=== PATIENT | male | born 1960 | race Caucasian/White ===

== ENCOUNTER 2018-05-18 08:14 | Observation (INO) ==
--- NOTE | 2018-05-18 08:58 | ED ---
HPI General Chief complaint: Chest Pain Stated complaint: Chest pain Time Seen by Provider: 05/18/18 08:28 Source: patient, family and RN notes reviewed Mode of arrival: ambulatory History of Present Illness HPI narrative: 58yM presenting with chest pain. The patient states that for the past several weeks he's been having intermittent substernal chest "pressure/ pain like a pinecone is in there" which radiates to his left shoulder, lasts for minutes and resolves with rest, associated with fatigue and dyspnea. Denies diaphoresis, lightheadedness, palpitations, or nausea. [facility] ago and was told to come to the ED for chest pain evaluation but was hesitant to come until today, when the pain got worse. Family history significant for brother with IN/ stents at age 52. Related Data Home Medications Medication Instructions Recorded Confirmed aripiprazole [Abilify] 15 mg PO DAILY 05/18/18 05/18/18 aspirin [Aspir-81] 81 mg PO DAILY 05/18/18 05/18/18 duloxetine [Cymbalta] 30 mg PO DAILY 05/18/18 05/18/18 fentanyl 1 patch TRANSDERMAL Q72H 05/18/18 05/18/18 fluticasone [Flonase Allergy 2 spray INTRANASAL DAILY 05/18/18 05/18/18 Relief] lisdexamfetamine [Vyvanse] 70 mg PO DAILY 05/18/18 05/18/18 lisinopril 5 mg PO DAILY 05/18/18 05/18/18 oxycodone-acetaminophen [Percocet] 1 tab PO DAILY PRN 05/18/18 05/18/18 Allergies Allergy/AdvReac Type Severity Reaction Status Date / Time gabapentin [From Neurontin] AdvReac Mild Headache Verified 05/18/18 08:20 morphine AdvReac Mild Headache Verified 05/18/18 08:20 Review of Systems ROS: all other systems reviewed are negative PMFSH History History Provided By: Patient Medical History Medical History ADHD (Acute) Bipolar 1 disorder (Acute) Depression (Acute) HTN (hypertension) (Acute) High cholesterol (Acute) Skin cancer (Acute) Surgical History Surgical History History of arthroscopic knee surgery (Acute) Previous back surgery (Acute) Social History Social History Substance History: No History of Abuse Second Hand Smoke Exposure: Yes Smoking Status: Never smoker Tobacco Type: Cigarettes How Often Do You Have a Drink Containing Alcohol: Never Recent Travel [facility] within the Last 8 Weeks: No Recent Out of Country Travel within the Last 8 Weeks: No Exam Const Other: Appears uncomfortable [facility] Head: normocephalic and atraumatic Face and sinus: normal facial exam Eyes General: appearance normal, both eyes and all related structures Pupils: PERRL Chest Chest: normal inspection of the chest Resp Effort & Inspection: normal respiratory effort Auscultation: no rhonchi and no wheezes Cardio Rate: regular rate Rhythm: regular rhythm GI Inspection: non-distended Palpation: soft and nontender Skin General: no rashes or lesions noted Other: Non-diaphoretic Neuro General: alert, awake, oriented x3 and no focal motor deficits Extrem Other: No lower extremity edema Psych Affect: normal affect Course Initial Documented Vital Signs Temperature 99.2 F 05/18/18 08:16 Pulse Rate 84 05/18/18 08:16 Respiratory Rate 22 05/18/18 08:16 Blood Pressure 127/71 05/18/18 08:16 Pulse Oximetry 97 05/18/18 08:16 Last Documented Vital Signs Temperature 99.2 F 05/18/18 08:16 Pulse Rate 76 05/18/18 08:47 Respiratory Rate 18 05/18/18 08:47 Blood Pressure 132/82 05/18/18 08:47 Pulse Oximetry 97 05/18/18 08:47 Clinical Decision Support HEART Score Questions History: Highly suspicious EKG: Non-specific repolarization disturbance Age: 45-64 years Risk Factors: 1-2 Risk Factors Initial Troponin: Normal Limit Heart Score HEART Score: 5 Medical Decision Making [facility] Narrative Medical decision making narrative: Assessment: 58yM presenting with chest pain Plan: EKG and monitor Labs CXR Patient already took 324 mg aspirin prior to arrival Addendum: Patient's initial troponin negative, CXR negative, labs otherwise unremarkable. He has a HEART score of 5, story concerning for unstable angina, family history, and multiple risk factors. He will need further evaluation/ observation in the [facility]. The patient understands and agrees with plan. Medical Screen Exam Complete: Yes Emergency Medical Condition: Yes Differential Diagnosis Differential Diagnosis: Differential diagnosis includes, but is not limited to: ACS, arrhythmia, CHF, pericarditis, pneumonia, pleural effusion Medical Records Medical records reviewed: Yes I reviewed the patient's medical records. Lab Data Lab results reviewed: Yes I reviewed the patient's lab results. Result diagrams: 05/18/18 08:50 05/18/18 08:50 Lab Results 05/18/18 05/18/18 05/18/18 Range/Units 08:50 08:50 08:50 WBC 5.2 (4.0-11.0) th/mm3 RBC 4.07 L (4.50-5.90) mil/mm3 Hgb 13.0 (13.0-17.0) gm/dL Hct 38.0 L (39.0-51.0) % MCV 93.4 (80.0-100.0) fL MCH 32.0 (27.0-34.0) pg MCHC 34.3 (32.0-36.0) % RDW 13.2 (11.6-17.2) % Plt Count 291 (150-450) th/mm3 MPV 8.1 (7.0-11.0) fL Neut % (Auto) 50.7 (16.0-70.0) % Lymph % (Auto) 33.6 (9.0-44.0) % [place] % (Auto) 8.8 H (0.0-8.0) % Eos % (Auto) 4.9 H (0.0-4.0) % Baso % (Auto) 2.0 (0.0-2.0) % Neut # (Auto) 2.6 (1.8-7.7) th/mm3 Lymph # (Auto) 1.7 (1.0-4.8) th/mm3 [place] # (Auto) 0.5 (0.0-0.9) th/mm3 Eos # (Auto) 0.3 (0.0-0.4) th/mm3 Baso # (Auto) 0.1 (0.0-0.2) th/mm3 WBC Differential . Differential Comment Auto diff final PT 10.3 (9.8-11.6) sec INR 1.0 Ratio APTT (24.3-30.1) sec Sodium 142 (136-145) meq/L Potassium 4.1 (3.5-5.1) meq/L Chloride 106 (98-107) meq/L Carbon Dioxide 28.8 (21.0-32.0) meq/L Anion Gap 7 (5-15) meq/L BUN 18 (7-18) mg/dL Creatinine 1.03 (0.60-1.30) mg/dL Estimated GFR 75 L (>89) mL/min Random Glucose 82 (74-106) mg/dL Calcium 8.5 (8.5-10.1) mg/dL Magnesium (1.5-2.5) mg/dL Total Bilirubin 0.2 (0.2-1.0) mg/dL AST 13 L (15-37) U/L ALT 31 (12-78) U/L Alkaline Phosphatase 79 (45-117) U/L Total Creatine Kinase (39-308) U/L Troponin I Less than 0.02 L (0.02-0.05) ng/mL Total Protein 7.2 (6.4-8.2) g/dL Albumin 3.8 (3.4-5.0) g/dL 05/18/18 05/18/18 Range/Units 08:50 08:50 WBC (4.0-11.0) th/mm3 RBC (4.50-5.90) mil/mm3 Hgb (13.0-17.0) gm/dL Hct (39.0-51.0) % MCV (80.0-100.0) fL MCH (27.0-34.0) pg MCHC (32.0-36.0) % RDW (11.6-17.2) % Plt Count (150-450) th/mm3 MPV (7.0-11.0) fL Neut % (Auto) (16.0-70.0) % Lymph % (Auto) (9.0-44.0) % [place] % (Auto) (0.0-8.0) % Eos % (Auto) (0.0-4.0) % Baso % (Auto) (0.0-2.0) % Neut # (Auto) (1.8-7.7) th/mm3 Lymph # (Auto) (1.0-4.8) th/mm3 [place] # (Auto) (0.0-0.9) th/mm3 Eos # (Auto) (0.0-0.4) th/mm3 Baso # (Auto) (0.0-0.2) th/mm3 WBC Differential Differential Comment PT (9.8-11.6) sec INR Ratio APTT 26.8 (24.3-30.1) sec Sodium (136-145) meq/L Potassium (3.5-5.1) meq/L Chloride (98-107) meq/L Carbon Dioxide (21.0-32.0) meq/L Anion Gap (5-15) meq/L BUN (7-18) mg/dL Creatinine (0.60-1.30) mg/dL Estimated GFR (>89) mL/min Random Glucose (74-106) mg/dL Calcium (8.5-10.1) mg/dL Magnesium 2.2 (1.5-2.5) mg/dL Total Bilirubin (0.2-1.0) mg/dL AST (15-37) U/L ALT (12-78) U/L Alkaline Phosphatase (45-117) U/L Total Creatine Kinase 82 (39-308) U/L Troponin I (0.02-0.05) ng/mL Total Protein (6.4-8.2) g/dL Albumin (3.4-5.0) g/dL Imaging Data Radiologist's impression: Chest X-Ray 05/18/18 08:53 CONCLUSION: No acute cardiopulmonary abnormality is identified. ECG Data Attestation: I personally reviewed and interpreted this ECG as follows: Interpretation: Rate: 80 BPM Rhythm: Sinus [place]: Normal Intervals: Complete RBBB, QTc 400 ms Q waves: III T waves: Inverted in III and aVF ST segments: No elevations or depressions Impression: Abnormal EKG, no previous EKG available for comparison. Discharge Plan Discharge Disposition Patient Disposition: 30 Still Patient Discharge Condition Condition: Stable Discharge Details Diagnosis: Chest pain Physicians Team ED Provider: Padmini Pearson Primary Care Provider: Carlos Alberto Stephenson Rxs /Orders / Referrals /Forms Prescriptions: No Action fentanyl 50 mcg/hr Patch 72 Hour 1 patch TRANSDERMAL Q72H RF: 0 aspirin [Aspir-81] 81 mg Tablet,Delayed Release (Dr/Ec) 81 mg PO DAILY RF: 0 oxycodone-acetaminophen [Percocet] 10-325 mg Tablet 1 tab PO DAILY PRN (Reason: Pain) RF: 0 lisinopril 5 mg Tablet 5 mg PO DAILY RF: 0 fluticasone [Flonase Allergy Relief] 50 mcg/actuation [place],Suspension 2 spray INTRANASAL DAILY RF: 0 aripiprazole [Abilify] 15 mg Tablet 15 mg PO DAILY RF: 0 duloxetine [Cymbalta] 30 mg Capsule,Delayed Release(Dr/Ec) 30 mg PO DAILY RF: 0 lisdexamfetamine [Vyvanse] 70 mg Capsule 70 mg PO DAILY RF: 0 Discharge Instructions Patient Printed Instructions: Chest Pain (ED) Discharge Interventions Interventions: Vital Signs Last Done: 05/18/18 08:47 Status ED Status: With Doctor
--- NOTE | 2018-05-18 09:46 | XR ---
EXAM DATE: 05/18/2018 8:53 AM EDT AGE/SEX: 58 years / Male INDICATIONS: Chest pain. CLINICAL DATA: This is the patient's initial encounter. Patient reports that signs and symptoms have been present for 3 days and indicates a pain score of 6/10. MEDICAL/SURGICAL HISTORY: None. None. COMPARISON: POI, XR CHEST PA AND LAT, 04/08/2018. . FINDINGS: Portable AP view of the chest demonstrates a normal-sized cardiac silhouette. No effusion, consolidat ion, or pneumothorax is identified. The bones and soft tissues demonstrate no acute finding. EKG line s overlie the patient. CONCLUSION: No acute cardiopulmonary abnormality is identified. Electronically signed by: Germain Rodriguez MD 05/18/2018 9:45 AM EDT
[2018-05-18 10:22] LABS: Baso # (Auto) 0.1 th/mm3 (0.0-0.2); Eos # (Auto) 0.3 th/mm3 (0.0-0.4); Eos % (Auto) 4.9 % (0.0-4.0); Lymph # (Auto) 1.7 th/mm3 (1.0-4.8); Lymph % (Auto) 33.6 % (9.0-44.0); Mean Corpuscular HGB Conc 34.3 % (32.0-36.0); Mean Corpuscular Volume 93.4 fL (80.0-100.0); Mean Platelet Volume 8.1 fL (7.0-11.0); Mono # (Auto) 0.5 th/mm3 (0.0-0.9); Mono % (Auto) 8.8 % (0.0-8.0); Neut # (Auto) 2.6 th/mm3 (1.8-7.7); Neut % (Auto) 50.7 % (16.0-70.0); Platelet Count 291 th/mm3 (150-450); Red Blood Count 4.07 mil/mm3 (4.50-5.90); Red Cell Distribution Width 13.2 % (11.6-17.2); White Blood Count 5.2 th/mm3 (4.0-11.0)
[2018-05-18 10:29] LABS: Prothrombin Time 10.3 sec (9.8-11.6)
[2018-05-18 10:40] LABS: Alanine Aminotransferase 31 U/L (12-78); Albumin 3.8 g/dL (3.4-5.0); Anion Gap 7 meq/L (5-15); Aspartate Aminotransferase 13 U/L (15-37); Blood Urea Nitrogen 18 mg/dL (7-18); Calcium 8.5 mg/dL (8.5-10.1); Carbon Dioxide 28.8 meq/L (21.0-32.0); Chloride 106 meq/L (98-107); Glomerular Filtration Rate 75 mL/min (>89); Glucose,Random 82 mg/dL (74-106); Magnesium 2.2 mg/dL (1.5-2.5); Potassium 4.1 meq/L (3.5-5.1); Sodium 142 meq/L (136-145)
[2018-05-18 10:44] LABS: Alkaline Phosphatase 79 U/L (45-117); Total Protein 7.2 g/dL (6.4-8.2)
--- NOTE | 2018-05-18 11:51 | ECG ---
Date Performed: 05/18/2018 Time Performed: 08:57:30 PTAGE: 58 years EKG: Baseline artifact present Sinus rhythm RIGHT BUNDLE BRANCH BLOCK ABNORMAL ECG NO PREVIOUS TRACING DOCTOR: Santos Portillo Interpretating Date/Time 05/18/2018 11:50:01
--- NOTE | 2018-05-18 12:15 | P.HPCA ---
History of Present Illness Primary Care Physician: Carlos Alberto Stephenson MD Chief Complaint: Chest pain History of Present Illness: 58 year old with history of hypertension, hyperlipidemia, chronic pain, and depression presents to ER for further evaluation of chest pain. Onset over a week ago. Location substernal. Characterized as tightness and sharp, states "like a pinecone is in my chest." No radiation. Breathing makes discomfort worse. No precipitating factors. Tried Maalox and Aspirin 325mg with some relief from aspirin. Pain never completely resolved. Duration constant. No associated symptoms of nausea, vomiting, diaphoresis. Seen his primary care provider, Dr. Stephenson, who encouraged ER visit that day. He did not want to concern his , therefore did come to ER at that time. When discomfort became worse this morning came to ER for further evaluation. No known CAD or diabetes. Recently cholesterol medication changed to Crestor, but he hasn't started yet. No recent illness or injury. Past cardiac testing Remote exercise stress testing 20 years ago. Social history Known hypertension and hyperlipidemia. No known CAD or diabetes. Current 1/2 pack day smoker, used to smoke 2.5 packs 20 years ago. . Retired. Sedentary lifestyle secondary to chronic pain. Family history Mother cardiac issues in mid 40s, required CABG age 68. Brother cardiac stents placed age 52. - Diagnosis (1) Atypical chest pain (2) Tobacco use Review of Systems All other systems reviewed negative except as [facility] - History History Provided By: Patient - Medical History Medical History: Medical History (Last Reviewed 05/18/18 @ 12:41 by TONEY Andre) ADHD Bipolar 1 disorder Depression HTN (hypertension) High cholesterol Skin cancer - Surgical History Surgical History: Surgical History (Last Reviewed 05/18/18 @ 12:41 by TONEY Andre) History of arthroscopic knee surgery Previous back surgery - Family History Family History: Family History (Last Updated 05/18/18 @ 12:42 by TONEY Andre) Brother CAD (coronary artery disease) Mother CAD (coronary artery disease) - Social History I have reviewed the patient's Social History: Yes - Tobacco History Second Hand Smoke Exposure: Yes Tobacco Use In Past 30 Days: Yes Smoking Status: Never smoker Tobacco Type: Cigarettes - Alcohol History How Often Do You Have a Drink Containing Alcohol: Never - Substance Use History Substance History: No History of Abuse - Travel History History of Recent Travel: No Recent Travel in the [place] Within the Last 8 Weeks: No Recent Travel Out of the Country Within the Last 8 Weeks: No - Immunization History Tetanus Immunization: >5 Years Hx Influenza Vaccine This Season: No Medications and Allergies Active Medications: Active Medications Aspirin (Aspirin) 325 mg PO DAILY ADAM Nitroglycerin (Nitrostat Sl) 0.4 mg SL Q5M PRN PRN Reason: CHEST PAIN Ondansetron HCl (Zofran Inj) 4 mg IV.PUSH Q6H PRN PRN Reason: NAUSEA Last Admin: 05/18/18 11:50 Dose: 4 mg Sodium Chloride (Ns Flush) 2 ml IV.FLUSH UNSCH PRN PRN Reason: FLUSH AFTER USING IV ACCESS Last Admin: 05/18/18 11:49 Dose: 2 ml Sodium Chloride (Ns Flush) 2 ml IV.FLUSH BID ADAM Sodium Chloride (Ns Flush) 2 ml IV.FLUSH PRN PRN PRN Reason: FLUSH AFTER USING IV ACCESS Last Admin: 05/18/18 11:50 Dose: 2 ml Allergies Allergy/AdvReac Type Severity Reaction Status Date / Time gabapentin [From Neurontin] AdvReac Mild Headache Verified 05/18/18 08:20 morphine AdvReac Mild Headache Verified 05/18/18 08:20 Home Medications Medication Instructions Recorded Confirmed Type aripiprazole [Abilify] 15 mg PO DAILY 05/18/18 05/18/18 History aspirin [Aspir-81] 81 mg PO DAILY 05/18/18 05/18/18 History duloxetine [Cymbalta] 30 mg PO DAILY 05/18/18 05/18/18 History fentanyl 1 patch TRANSDERMAL Q72H 05/18/18 05/18/18 History fluticasone [Flonase Allergy 2 spray INTRANASAL DAILY 05/18/18 05/18/18 History Relief] lisdexamfetamine [Vyvanse] 70 mg PO DAILY 05/18/18 05/18/18 History lisinopril 5 mg PO DAILY 05/18/18 05/18/18 History oxycodone-acetaminophen [Percocet] 1 tab PO DAILY PRN 05/18/18 05/18/18 History Exam Vital signs: Vital Signs 05/18/18 08:16 05/18/18 08:47 05/18/18 11:46 Temperature 99.2 F Pulse Rate 84 76 84 Respiratory Rate 22 18 18 Blood Pressure 127/71 132/82 128/77 Pulse Oximetry 97 97 05/18/18 11:53 Temperature Pulse Rate 86 Respiratory Rate 18 Blood Pressure 118/67 Pulse Oximetry Intake & Output 05/17/18 05/18/18 05/18/18 18:59 06:59 18:59 Weight 120.202 kg Narrative: GENERAL: Alert WN, WD, NAD, pleasant, male HEAD: NC, AT EYES: Sclera clear, conjunctiva without injection NECK: Supple, no masses, trachea midline CV: RRR, without murmur, rub, gallop, no JVD, S1-S2 no S3-S4. No carotid or femoral bruits. Left anterior and substernal pain reproduced with palpation. RESP: Scattered rhonchi, no crackles or wheeze. symmetrical chest rise, nonlabored, able to speak in full sentences ABD: Soft, NT, ND, no masses, positive bowel tones EXT: Pulses +2x4, no dependent edema MS: Normal tone x4 extremities, no obvious deformities, full range of motion NEURO: CN II through CN XII grossly intact, motor strength 5/5 PSYCH: A+O x3, flat affect, appropriate speech, mood, insight and judgment SKIN: Normal turgor, normal texture, no lesions, no rashes, brisk cap refill, even hair distribution, tattoos Results 05/18/18 08:50 05/18/18 08:50 Cardiac Enzymes 05/18/18 Range/Units 08:50 AST 13 L (15-37) U/L Troponin I Less than 0.02 L (0.02-0.05) ng/mL Coagulation 05/18/18 05/18/18 Range/Units 08:50 08:50 PT 10.3 (9.8-11.6) sec APTT 26.8 (24.3-30.1) sec CBC 05/18/18 Range/Units 08:50 WBC 5.2 (4.0-11.0) th/mm3 RBC 4.07 L (4.50-5.90) mil/mm3 Hgb 13.0 (13.0-17.0) gm/dL Hct 38.0 L (39.0-51.0) % Plt Count 291 (150-450) th/mm3 Neut # (Auto) 2.6 (1.8-7.7) th/mm3 Lymph # (Auto) 1.7 (1.0-4.8) th/mm3 [place] # (Auto) 0.5 (0.0-0.9) th/mm3 Eos # (Auto) 0.3 (0.0-0.4) th/mm3 Baso # (Auto) 0.1 (0.0-0.2) th/mm3 Comprehensive Metabolic Panel 05/18/18 Range/Units 08:50 Sodium 142 (136-145) meq/L Potassium 4.1 (3.5-5.1) meq/L Chloride 106 (98-107) meq/L Carbon Dioxide 28.8 (21.0-32.0) meq/L BUN 18 (7-18) mg/dL Creatinine 1.03 (0.60-1.30) mg/dL Calcium 8.5 (8.5-10.1) mg/dL AST 13 L (15-37) U/L ALT 31 (12-78) U/L Alkaline Phosphatase 79 (45-117) U/L Total Protein 7.2 (6.4-8.2) g/dL Albumin 3.8 (3.4-5.0) g/dL Intake and Output 05/17/18 05/18/18 05/18/18 22:59 06:59 14:59 Other: Weight 120.202 kg Patient Weight 05/19/18 06:59 Weight 120.202 kg - Imaging and Cardiology Imaging: Impressions Chest X-Ray 05/18/18 08:53 CONCLUSION: No acute cardiopulmonary abnormality is identified. EKG interpretations - EKG EKG results cardiology: sinus rhythm, normal axis (NSR, right BBB) Caprini VTE Risk Assessment Caprini VTE Risk Assessment: No/Low Risk (score <= 1) Caprini Risk Assessment Model: Point Value = 1 Point Value = 2 Point Value = 3 Point Value = 5 Age 41-60 Minor surgery BMI > 25 kg/m2 Swollen legs Varicose veins or History of unexplained or recurrent spontaneous Oral contraceptives or hormone replacement Sepsis (< 1 month) Serious lung disease, including pneumonia (< 1 month) Abnormal pulmonary function Acute myocardial infarction Congestive heart failure (< 1 month) History of inflammatory bowel disease Medical patient at bed rest Age 61-74 Arthroscopic surgery Major open surgery (> 45 min) Laparoscopic surgery (> 45 min) Malignancy Confined to bed (> 72 hours) Immobilizing plaster cast Central venous access Age >= 75 History of VTE Family history of VTE Factor V Leiden Prothrombin [id number] Lupus anticoagulant Anticardiolipin antibodies Elevated serum homocysteine Heparin-induced thrombocytopenia Other congenital or acquired thrombophilia Stroke (< 1 month) Elective arthroplasty Hip, pelvis, or leg fracture Acute spinal cord injury (< 1 month) Prophylaxis Regimen: Total Risk Factor Score Risk Level Prophylaxis Regimen 0-1 Low Early ambulation 2 Moderate Order ONE of the following: *Sequential Compression Device (SCD) *Heparin 5000 units SQ BID 3-4 Higher Order ONE of the following medications: *Heparin 5000 units SQ TID *Enoxaparin/Lovenox 40 mg SQ daily (WT < 150 kg, CrCl > 30 mL/min) *Enoxaparin/Lovenox 30 mg SQ daily (WT < 150 kg, CrCl > 10-29 mL/min) *Enoxaparin/Lovenox 30 mg SQ BID (WT < 150 kg, CrCl > 30 mL/min) AND/OR *Sequential Compression Device (SCD) 5 or more Highest Order ONE of the following medications: *Heparin 5000 units SQ TID (Preferred with Epidurals) *Enoxaparin/Lovenox 40 mg SQ daily (WT < 150 kg, CrCl > 30 mL/min) *Enoxaparin/Lovenox 30 mg SQ daily (WT < 150 kg, CrCl > 10-29 mL/min) *Enoxaparin/Lovenox 30 mg SQ BID (WT < 150 kg, CrCl > 30 mL/min) AND *Sequential Compression Device (SCD) Assessment and Plan - Assessment (1) Atypical chest pain Code(s): R07.89 - Other chest pain Status: Acute Plan: Admitted to chest pain center. Rule out ACS with 3 sets of EKGs and cardiac enzymes. Seen and evaluated by Dr. Jay Jay Cole. If ruled out, plans to complete Lexiscan in a.m. as he drank caffeine this morning. Patient and agreeable to plan of care and verbalized understanding. (2) Tobacco use Code(s): Z72.0 - Tobacco use Status: Chronic Plan: Strongly encouraged and stressed the importance of tobacco cessation. Instructed to quit smoking.
[2018-05-18 13:37] LABS: Creatine Kinase 75 U/L (39-308)
[2018-05-18] MEDS ORDERED: oxyCODONE/Acetaminophen 10/325 Tablet PO PRN (14:02)
[2018-05-18 15:30] LABS: Creatine Kinase 64 U/L (39-308)
[2018-05-19 08:34] VITALS: RESP 16
[2018-05-19] MEDS ORDERED: Lisdexamfetamine 40 MG Capsule PO SCH (09:00)
[2018-05-19] MEDS ORDERED: Lisinopril 5 MG Tablet PO SCH (09:00)
[2018-05-19] MEDS ORDERED: Lisdexamfetamine 30 MG Capsule PO SCH (09:00)
[2018-05-19] MEDS ORDERED: Aspirin 325 MG Tablet PO SCH (09:00)
[2018-05-19] MEDS ORDERED: Regadenoson Inj 0.4 MG/5 ML Syringe IV.PUSH ONE (09:16)
--- NOTE | 2018-05-19 10:59 | NM ---
EXAM DATE: 05/19/2018 9:17 AM EDT AGE/SEX: 58 years / Male INDICATIONS:Angina. . Substernal chest pain. CLINICAL DATA: This is the patient's initial encounter. Patient reports that signs and symptoms have been present for 1 day and indicates a pain score of 3/10. MEDICAL/SURGICAL HISTORY: Hypertension. Fusion, lumbar. COMPARISON: No prior exams available for comparison. DOSE: 11 mCi Tc 99m Myoview at rest 35 mCi [id number] at stress 0.4 mg Lexiscan STRESS SYMPTOMS: Dyspnea and tired feeling. EJECTION FRACTION: 58 % TECHNIQUE: The patient underwent pharmacologic stress with infusion of prescribed dose. Continuous ECG tracing was monitored during stress. Gated SPECT imaging was performed after stress and conventi onal SPECT imaging was performed at rest. The examination was performed on a SPECT/CT scanner, both attenuation and non-corrected datasets were reviewed. FINDINGS: Best perfused myocardium is the lateral wall followed by the septum. There is a small fixed defect in the anterior wall to the base. Minimal gut activity is obscure the inferior wall. There is minimal redistribution in the septum extending to the apex involving a very small segment of myocardium with normal wall motion. RISK CATEGORY: Low (<1% Annual Motality Rate) CONCLUSION: 1. Very small segment of minimal redistribution septum extending to the apex of doubtful clinical si gnificance. Correlation suggested. Electronically signed by: Jose Daniel Interiano MD 05/19/2018 10:58 AM EDT
[2018-05-19 11:47] VITALS: BP 121/67; PULSE 67; TEMP 98.5; O2SAT 95
--- NOTE | 2018-05-19 15:12 | ECG ---
Date Performed: 05/18/2018 Time Performed: 15:41:33 PTAGE: 58 years EKG: Sinus rhythm RIGHT BUNDLE BRANCH BLOCK ABNORMAL ECG PREVIOUS TRACING : 05/18/2018 08.57 Since previous tracing, no significant change noted DOCTOR: Toby Moore Interpretating Date/Time 05/19/2018 15:10:01
--- NOTE | 2018-05-19 15:15 | TR ---
Date Performed: 05/19/2018 Time Performed: 09:43:30 DOCTOR: Toby Moore DRUG LIST: CLINICAL HISTORY: REASON FOR TEST: REASON FOR ENDING: OBSERVATION: CONCLUSION: COMMENTS: Lexiscan stress test was performed under standard four minute protocol. Radionuclide was injected one minute prior to ending the test. No electrocardiographic abormalities were present t o suggest ischemia. Nuclear imaging and interpretation are pending.
== END 2018-05-19 13:25 | disposition home or self-care (01) ==
LOC: NEDA 08:14 → NEPC 08:14 → NEPGCP 13:33